=== PATIENT | female | born 1995 | race Caucasian/White ===

== ENCOUNTER → 2020-01-31 10:27 | Outpatient (CLI) | payer OTHER, SELFPAY ==
--- NOTE | ~2020-01-31 | XR_ITS ---
XR lumbar spine min 4V DATE: 01/31/2020 11:23 INDICATION: Back pain TECHNIQUE: AP, lateral, coned lateral lumbosacral and bilateral oblique views COMPARISON: None FINDINGS: Normal alignment of the lumbar spine. No fracture or bone destruction. No spondylolysis o r spondylolisthesis. The lumbar pedicles are intact. The lumbar and lumbosacral interspaces are wel l preserved. The sacroiliac joints are normal. IMPRESSION: No significant abnormality Reviewed, dictated and finalized at location A. IMPRESSION: No significant abnormality
== END ==
DX: M54.9 Dorsalgia, unspecified (principal)
CPT/HCPCS: 72110